=== PATIENT | female | born 1985 | race Caucasian/White ===

== ENCOUNTER → 2016-04-18 | Outpatient (CLI) | payer OTHER ==
[~2016-04-18] MED LIST: ACET-1256 PO; ATV/1 PO; IBUP-1050 PO; LORA0.5T12 PO; OMEP20CA9 PO; PANT1TAB48 PO; RANI300T2 PO; SUCR1TAB29 PO; VENL150C56 PO; VENL1CAP92 PO
[2016-04-18 12:49] LABS: BASO % 0.5 %; BASO ABS # 0.03 K/uL (0-0.2); COMPLETE YES; EOS % 4.6 %; HEMATOCRIT 40.1 % (37-47); IG% 0.2 %; LYMPH % 24.1 %; LYMPH ABS # 1.46 K/uL (1.2-3.4); MEAN CELL VOLUME 90.3 fL (80-100); MEAN CORPUSCULAR HEMOGLOBIN 30.6 pg (25-34); MEAN CORPUSCULAR HGB CONC 33.9 g/dl (32-36); MEAN PLATELET VOLUME 10.5 fL (7.4-10.4); MONO % 9.6 %; PLATELET COUNT 232 K/uL (130-400); RED BLOOD COUNT 4.44 M/uL (4.2-5.4); WHITE BLOOD COUNT 6.07 K/uL (4.8-10.8)
[2016-04-18 13:16] LABS: ESTIMATED AVERAGE GLUCOSE 97 mg/dl; HA1C FLAG Normal (Normal)
[2016-04-18 13:25] LABS: ALT/SGPT 37 U/L (12-78); AST/SGOT 15 U/L (15-37); BLOOD UREA NITROGEN 9 mg/dl (7-18); CARBON DIOXIDE 27 mmol/L (21-32); CHLORIDE 108 mmol/L (98-107); CREATININE 0.79 mg/dl (0.60-1.20); GLUCOSE 101 mg/dl (70-99); POTASSIUM 3.9 mmol/L (3.5-5.1); SODIUM 141 mmol/L (136-145)
[2016-04-18 13:36] LABS: ALB/GLOB RATIO 1.1 (0.9-2); ALKALINE PHOSPHATASE 66 U/L (45-117); CHOLESTEROL 150 mg/dl (0-200); CHOLESTEROL/HDL RATIO 3.6; HDL CHOLESTEROL 42 mg/dl; LDL CHOLESTEROL CALCULATED 84 mg/dl; TRIGLYCERIDES 120 mg/dl (0-150); VERY LOW DENSITY LIPOPROT CALC 24 mg/dl
[2016-04-19 06:49] LABS: URCREATININE 134.6 MG/DL (>/= 20)
== END | disposition home or self-care (01) ==
LOC: C.LABPBG 07:59
PROVIDERS: ATTEND Nurse Practitioner Adult Health
DX: Z00.00 Encounter for general adult medical examination without abnormal findings (principal); F41.9 Anxiety disorder, unspecified; E66.9 Obesity, unspecified

== ENCOUNTER → 2016-07-29 | Outpatient (CLI) | payer OTHER ==
[2016-07-29 17:44] LABS: LYME DISEASE AB IGG NEG (NEG); LYME DISEASE AB IGM NEG (NEG)
== END | disposition home or self-care (01) ==
LOC: C.LABPBG 14:08
PROVIDERS: ATTEND Nurse Practitioner Adult Health
DX: R07.89 Other chest pain (principal)

== ENCOUNTER → 2016-08-05 | Outpatient (CLI) | payer OTHER ==
--- NOTE | 2016-08-05 12:10 | MAMMOGRAPHY REPORT ---
UNILATERAL LEFT DIGITAL DIAGNOSTIC MAMMOGRAM TOMOSYNTHESIS WITH CAD: 08/05/2016 CLINICAL HISTORY: The patient has a history of cervical cancer status post hysterectomy. She reports intermittent diffuse left chest/breast pain for as long as she can remember including her teenage ye ars. She denies any palpable lumps or nipple discharge or other complaints. TECHNIQUE: Breast tomosynthesis in addition to standard 2D mammography was performed. Current study was also evaluated with a Computer Aided Detection (CAD) system. Left CC and MLO 2-D and tomosynthes is images were obtained. COMPARISON: No prior exams were available for comparison. BREAST COMPOSITION: There are scattered areas of fibroglandular density in the left breast. FINDINGS: There are no suspicious masses, calcifications, or areas of architectural distortion noted in the left breast mammographically. As the pain is diffuse and nonfocal, ultrasound was not perfor med. IMPRESSION: ACR BI-RADS CATEGORY 1: NEGATIVE No suspicious mammographic abnormality to explain intermittent diffuse left breast pain. There is no mammographic evidence of malignancy. Recommend clinical follow-up. The patient has been verbally notified of the results. Approximately 10% of breast cancers are not detected with mammography. A negative mammographic report should not delay biopsy if a clinically suggestive mass is present. Archana Greene M.D. ah/:08/05/2016 09:46:36 Supervising Broker: Vee CAZARES)(Antonio), [facility] letter sent: Normal 1/2 BI-RADS Code: ACR BI-RADS Category 1: Negative
== END | disposition home or self-care (01) ==
LOC: C.MAMM 09:14
PROVIDERS: ATTEND Nurse Practitioner Adult Health
DX: N64.4 Mastodynia (principal); Z85.41 Personal history of malignant neoplasm of cervix uteri

== ENCOUNTER → 2016-09-29 | Outpatient (CLI) | payer OTHER | END | disposition home or self-care (01) | LOC: C.LABSPEC 18:15 | PROVIDERS: ATTEND Family Medicine | DX: R10.13 Epigastric pain (principal) ==

== ENCOUNTER → 2016-09-29 | Outpatient (CLI) | payer OTHER ==
[2016-09-29 18:39] LABS: BASO % 0.4 %; BASO ABS # 0.03 K/uL (0-0.2); COMPLETE YES; EOS % 2.9 %; HEMATOCRIT 40.8 % (37-47); IG% 0.1 %; LYMPH ABS # 2.41 K/uL (1.2-3.4); MEAN CELL VOLUME 91.5 fL (80-100); MEAN CORPUSCULAR HEMOGLOBIN 32.1 pg (25-34); MEAN PLATELET VOLUME 10.3 fL (7.4-10.4); NEUT % 62.6 %; PLATELET COUNT 264 K/uL (130-400); RED BLOOD COUNT 4.46 M/uL (4.2-5.4); WHITE BLOOD COUNT 8.03 K/uL (4.8-10.8)
[2016-09-29 18:49] LABS: ALT/SGPT 44 U/L (12-78); AST/SGOT 16 U/L (15-37); BLOOD UREA NITROGEN 5 mg/dl (7-18); BUN/CREATININE RATIO 6.4 (10-20); CALCIUM 9.2 mg/dl (8.5-10.1); CARBON DIOXIDE 28 mmol/L (21-32); CHLORIDE 106 mmol/L (98-107); CREATININE 0.81 mg/dl (0.60-1.20); GLUCOSE 90 mg/dl (70-99); POTASSIUM 3.6 mmol/L (3.5-5.1); SODIUM 139 mmol/L (136-145)
[2016-09-29 18:52] LABS: ALB/GLOB RATIO 1.2 (0.9-2); ALKALINE PHOSPHATASE 71 U/L (45-117)
[2016-10-04 02:15] LABS: GLIADIN DEAMIDATED IgA AB 3 UNITS (<20); GLIADIN DEAMIDATED IgG AB 3 UNITS (<20); RETICULIN IgA AB Negative (Negative)
== END | disposition home or self-care (01) ==
LOC: C.LABPBG 15:06
PROVIDERS: ATTEND Family Medicine
DX: R10.13 Epigastric pain (principal)

== ENCOUNTER → 2016-10-05 | Outpatient (CLI) | payer OTHER | END | disposition home or self-care (01) | LOC: C.LABPBG 15:38 | PROVIDERS: ATTEND Registered Nurse | DX: R11.2 Nausea with vomiting, unspecified (principal) ==

== ENCOUNTER → 2016-10-06 | Outpatient (CLI) | payer OTHER ==
--- NOTE | 2016-10-06 10:15 | DIAGNOSTIC IMAGING REPORT ---
ABDOMINAL ULTRASOUND, RIGHT UPPER QUADRANT HISTORY: Epigastric abdominal pain. Acid reflux disease. COMPARISON: None. FINDINGS: Hepatic echogenicity is slightly increased. No hepatic lesions are identified. There is no biliary ductal dilatation. The common bile duct measures 4 mm in caliber. The gallbladder is normal. There are no gallstones. The pancreatic body is normal. The head and tail are slightly obscured by overlying bowel gas. There is no right hydronephrosis. IMPRESSION: 1. No gallstones or biliary ductal dilatation. 2. Possible fatty infiltration of the liver. Electronically signed by: Jona Segal M.D. 10/06/2016 10:13 AM Dictated Date/Time: 10/06/2016 10:12 AM
== END | disposition home or self-care (01) ==
LOC: C.ULTRBC 09:14
PROVIDERS: ATTEND Registered Nurse
DX: K21.9 Gastro-esophageal reflux disease without esophagitis (principal); R11.2 Nausea with vomiting, unspecified; R10.13 Epigastric pain

== ENCOUNTER → 2016-10-19 | Day surgery (SDC) | payer OTHER ==
[2016-10-11 11:23] VITALS: BMI 32.0
[~2016-10-19] VITALS: Ht 172.7 cm; Wt 97.3 kg
[~2016-10-19] MED LIST changes: -ACET-1256 PO; -IBUP-1050 PO; +LIDOCAINE HCL 2% 2 ML VIAL (20MG/ML) ONE; -LORA0.5T12 PO; +MIDAZOLAM HCL 1 MG/ML 2ML VIAL ONE; +PROPOFOL IV EMULSION 10 MG/ML 20 ML VIAL IV ONE; +SODIUM CHLORIDE 0.9% 500ML 500 ML IV ONE; -VENL1CAP92 PO
[2016-10-19 08:36] VITALS: Ht 172.7 cm; Wt 97.3 kg
[2016-10-19 08:43] VITALS: TEMP 37
--- NOTE | 2016-10-19 08:59 | Endo History and Physical ---
History & Physical Date of Service: Oct 19, 2016. Chief Complaint: VOMITING EPIGASTRIC PAIN GERD Referring Physician: DR MONTIEL History of Present Illness 30 yo CF who presents for EGD secondary to epigastric pain and GERD. Past Surgical History Hx Cardiac Surgery: No Hx Internal Defibrillator: No Hx Pacemaker: No Hx Abdominal Surgery: Yes (CONIZATION) Hx of Implantable Prosthesis: No Hx Post-Op Nausea and Vomiting: No Hx Cancer Surgery: Yes (BERNARDINO) Hx Thoracic Surgery: No Hx Orthopedic: No Hx Urinary Tract Surgery: No Family History Polyp, IBD Social History Smoking Status: Current Every Day Smoker Hx Substance Use: No Hx Alcohol Use: Yes (RARELY) Allergies Coded Allergies: Penicillins (Verified Allergy, Severe, "SWELLING" throat swells hives, ) Amoxicillin (Verified Allergy, Unknown, ANAPHYLAXIS, 10/19/16) Current Medications Reported Home Medications Medications Dose Route/Sig Max Daily Dose Days Date Category Ativan (Lorazepam) 1 Mg Tab 0.5 Mg PO BID PRN 10/11/16 Reported Prilosec (Omeprazole) 20 Mg Cap 20 Mg PO BID 10/11/16 Reported Effexor Extended Rel (Venlafaxine Hcl) 150 Mg Cap 150 Mg PO QAM 10/11/16 Reported Carafate (Sucralfate) 1 Gm Tab 1 Tab PO QID PRN 30 10/11/16 Reported Zantac (Ranitidine HCl) 300 Mg Tab 300 Mg PO HS 10/11/16 Reported Protonix (Pantoprazole) 40 Mg Tab 40 Mg PO QAM 10/11/16 Reported Vital Signs Weight (Kilograms): 97.27 Height (Feet): 5 Height (Inches): 8 Date Time Temp Pulse Resp B/P (MAP) Pulse Ox O2 Delivery O2 Flow Rate FiO2 10/19/16 08:43 37 94 18 125/80 (95) 98 Room Air Physical Exam General Appearance: WD/WN, no apparent distress Respiratory/Chest: Auscultation: breath sounds normal Cardiovascular: Heart Auscultation: RRR Abdomen: Bowel Sounds: normal Inspection & Palpation: soft, non-distended, no tenderness, guarding & rebound Assessment and Plan Assessment: 30 yo CF who presents for EGD secondary to epigastric pain and GERD. Plan: Proceed with EGD.
--- NOTE | 2016-10-19 09:23 | GI REPORT ---
Procedure Date: 10/19/2016 9:09 AM Procedure: Upper GI endoscopy Indications: Epigastric abdominal pain, Gastro-esophageal reflux disease Medicines: Monitored Anesthesia Care Complications: No immediate complications. Estimated Blood Loss: Estimated blood loss: none. Procedure: Pre-Anesthesia Assessment: - Prior to the procedure, a History and Physical was performed, and patient medications and allergies were reviewed. The patient's tolerance of previous anesthesia was also reviewed. The risks and benefits of the procedure and the sedation options and risks were discussed with the patient. All questions were answered, and informed consent was obtained. Prior Anticoagulants: The patient has taken no previous anticoagulant or antiplatelet agents. ASA Grade Assessment: II - A patient with mild systemic disease. After reviewing the risks and benefits, the patient was deemed in satisfactory condition to undergo the procedure. After obtaining informed consent, the endoscope was passed under direct vision. Throughout the procedure, the patient's blood pressure, pulse, and oxygen saturations were monitored continuously. The scope was introduced through the mouth, and advanced to the second part of duodenum. The upper GI endoscopy was accomplished without difficulty. The patient tolerated the procedure well. Findings: The esophagus was normal. The entire examined stomach was normal. Biopsies were taken with a cold forceps for Helicobacter pylori testing. The examined duodenum was normal. Biopsies for histology were taken with a cold forceps for evaluation of celiac disease. Impression: - Normal esophagus. - Normal stomach. Biopsied. - Normal examined duodenum. Biopsied. Recommendation: - Resume previous diet. - Continue present medications. - Await pathology results. - Return to GI office as previously scheduled. Roque Hansen DO 10/19/2016 9:23:42 AM This report has been signed electronically. Note Initiated On: 10/19/2016 9:09 AM I attest to the content of the Intraoperative Record and orders documented therein, exceptions below
--- NOTE | 2016-10-19 09:55 | Discharge Instructions ---
Endoscopy Patient Instructions Date / Procedure(s) Performed Oct 19, 2016. EGD Allergy Information Coded Allergies: Penicillins (Verified Allergy, Severe, "SWELLING" throat swells hives, ) Amoxicillin (Verified Allergy, Unknown, ANAPHYLAXIS, 10/19/16) Discharge Date / Findings Oct 19, 2016. Gastric antrum biopsies Duodenal biopsies Medication Instructions OK to resume all medications today as prescribed Reported Home Medications Medications Dose Route/Sig Max Daily Dose Days Date Category Ativan (Lorazepam) 1 Mg Tab 0.5 Mg PO BID PRN 10/11/16 Reported Prilosec (Omeprazole) 20 Mg Cap 20 Mg PO BID 10/11/16 Reported Effexor Extended Rel (Venlafaxine Hcl) 150 Mg Cap 150 Mg PO QAM 10/11/16 Reported Carafate (Sucralfate) 1 Gm Tab 1 Tab PO QID PRN 30 10/11/16 Reported Zantac (Ranitidine HCl) 300 Mg Tab 300 Mg PO HS 10/11/16 Reported Protonix (Pantoprazole) 40 Mg Tab 40 Mg PO QAM 10/11/16 Reported Provider Instructions Activity Restrictions - No exercising or heavy lifting for 24 hours. - Do not drink alcohol the day of the procedure. - Do not drive a car or operate machinery until the day after the procedure. - Do not make any important decisions or sign important papers in 24 hours after the procedure. Following Day: - Return to full activity which may include returning to work/school. Diet Start your diet with liquids and light foods (jello, soup, juice, toast). Then eat your usual diet if not nauseated. Treatment For Common After Affects For mild abdominal pain, bloating, or excessive gas: - Rest - Eat lightly - Lie on right side Follow-Up Information Follow-up with DR MONTIEL as scheduled Anesthesia Information What You Should Know You have had a procedure that required some medicine to reduce anxiety and discomfort. This treatment is called moderate sedation. After receiving the treatment, you may be sleepy, but you will be able to breathe on your own. The effects of the treatment may last for several hours. Follow these instructions along with Activity/Diet recommendations noted above: * Do NOT do anything where dizziness or clumsiness would be dangerous. * Rest quietly at home today, then you can be up and about tomorrow. * Have a responsible person stay with you the rest of today. * You may have had an I.V. today. If so, you may take the dressing off later today. Recommendations Call your doctor if: * Trouble breathing * Continuous vomiting for more than 24 hours * Temperature above 101 degrees * Severe abdominal pain or bloating * Pain not relieved by pain medicine ordered * There is increased drainage or redness from any incision * A large amount of rectal bleeding greater than 2-3 tablespoons. (If you had a polyp/s removed or have hemorrhoids, a small amount of blood - from the rectum is to be expected.) * You have any unanswered questions or concerns. IN THE EVENT OF A SERIOUS EMERGENCY, GO TO THE NEAREST EMERGENCY ROOM Your discharge instructions were prepared by provider Roque Hansen. Patient Instructions Signature Page Rose Mary Kaur Patient (or Guardian) Signature/Date: I have read and understand the instructions given to me by my caregivers. Caregiver/RN/Doctor Signature/Date: The above-named patient and/or guardian has received patient instructions on this date. + Original Patient Signature Page (only) stays with chart. Please make copy for patient.
[2016-10-19 09:56] VITALS: BP 116/90; PULSE 79; O2SAT 100
--- NOTE | 2016-10-19 10:24 | Anesthesiology Progress Note ---
Anesthesia Post Op Note Date & Time Oct 19, 2016 at 10:23 Vital Signs Pain Intensity: 0 Vital Signs Past 12 Hours Date Time Temp Pulse Resp B/P (MAP) Pulse Ox O2 Delivery O2 Flow Rate FiO2 10/19/16 09:56 79 18 116/90 (99) 100 Room Air 10/19/16 09:41 79 18 110/79 (89) 99 Room Air 10/19/16 09:26 88 18 111/84 (93) 97 Room Air 10/19/16 08:43 37 94 18 125/80 (95) 98 Room Air Notes Mental Status: alert / awake / arousable, participated in evaluation Pt Amnestic to Procedure: Yes Nausea / Vomiting: adequately controlled Pain: adequately controlled Airway Patency, RR, SpO2: stable & adequate BP & HR: stable & adequate Hydration State: stable & adequate Anesthetic Complications: no major complications apparent
== END ==
LOC: C.GI 08:16
PROVIDERS: ATTEND Internal Medicine
DX: R10.13 Epigastric pain (principal); K29.50 Unspecified chronic gastritis without bleeding; K21.9 Gastro-esophageal reflux disease without esophagitis; E66.9 Obesity, unspecified; Z85.41 Personal history of malignant neoplasm of cervix uteri

== ENCOUNTER → 2017-03-16 | Outpatient (CLI) | payer OTHER ==
[~2017-03-16] MED LIST changes: -LIDOCAINE HCL 2% 2 ML VIAL (20MG/ML) ONE; -MIDAZOLAM HCL 1 MG/ML 2ML VIAL ONE; +PANT1TAB3 PO; -PANT1TAB48 PO; -PROPOFOL IV EMULSION 10 MG/ML 20 ML VIAL IV ONE; -SODIUM CHLORIDE 0.9% 500ML 500 ML IV ONE
== END | disposition home or self-care (01) ==
LOC: C.PAPS 10:00
PROVIDERS: ATTEND Obstetrics & Gynecology
DX: Z12.4 Encounter for screening for malignant neoplasm of cervix (principal)

== ENCOUNTER 2022-06-03 05:37 | Inpatient (IN) ==
--- NOTE | 2022-05-26 11:54 | Anesthesiology Consultation ---
Date of Service May 26, 2022 History Surgery Operation Date: 06/03/22 11:15 Proposed Procedures p Left Salpingo-oophorectomy - Bryankhushboo Kaur MD Height/Weight Height: 5 ft 8 in Weight: 99.79 kg Allergies Allergy/AdvReac Type Severity Reaction Status Date / Time Penicillins Allergy Severe "SWELLING" Verified 05/26/22 11:19 throat swells hives amoxicillin Allergy Unknown ANAPHYLAXIS Verified 05/26/22 11:19 Medications Home Medications Medication Instructions Recorded Confirmed Last Taken lorazepam 1 mg tablet 1 mg PO BID PRN Anxiety 01/05/18 05/26/22 03/22/17 venlafaxine 150 mg 150 mg PO QAM 01/05/18 05/26/22 01/11/18 capsule,extended release 24 hr venlafaxine 75 mg capsule,extended 75 mg PO QAM 01/05/18 05/26/22 01/11/18 release 24 hr cyclobenzaprine 5 mg tablet 5 mg PO TID PRN muscle spasm #30 03/17/22 05/26/22 Unknown tabs oxcarbazepine 300 mg tablet 300 mg PO BID 03/17/22 05/26/22 Unknown gabapentin 300 mg capsule 300 mg PO .COMPLEX #90 caps 05/11/22 05/26/22 Unknown diclofenac sodium 75 mg 75 mg PO BID PRN pain #60 tabs 05/20/22 05/26/22 Unknown tablet,delayed release ibuprofen 200 mg tablet 200 mg PO Q6H PRN Pain 05/26/22 05/26/22 Unknown Past Medical History Medical History Anxiety Cervical cancer 2016--sx Depression GERD (gastroesophageal reflux disease) Left ovarian cyst Lumbar paraspinal muscle spasm Lumbosacral radiculopathy Osteoarthritis Protruded lumbar disc Spinal stenosis Past Family History Family History Father Family history of reaction to anesthesia difficulty waking after surgeries Family hx colonic polyps Mother Family hx colonic polyps Grandmother (Paternal) Family hx colonic polyps Grandfather (Paternal) Family history of diabetes mellitus Past Surgical History Surgical History History of dilatation and curettage History of esophagogastroduodenoscopy (EGD) History of hysterectomy d/t cancer History of myringotomy bilt History of tonsillectomy and adenoidectomy History of tooth extraction wisdom teeth Hx of colposcopy with cervical biopsy malignant Social History Smoking Status: Current some day smoker tobacco type: cigarettes Smoking cigarettes per day: 1 ppd every 3-4 days Do You Dip or Chew Tobacco: No Hx Alcohol Use: No Hx Substance Use: No substance use type: does not use
--- NOTE | 2022-05-26 12:58 | PAT Medication Instructions ---
Medication Instructions Date of Service May 26, 2022 Home Medications Medication Instructions Recorded cyclobenzaprine 5 mg tablet 5 mg PO TID PRN muscle spasm #30 03/17/22 tabs gabapentin 300 mg capsule 300 mg PO .COMPLEX #90 caps 05/11/22 diclofenac sodium 75 mg 75 mg PO BID PRN pain #60 tabs 05/20/22 tablet,delayed release lorazepam 1 mg tablet 1 mg PO BID PRN venlafaxine 150 mg capsule,extended release 24 hr 150 mg PO QAM venlafaxine 75 mg capsule,extended release 24 hr 75 mg PO QAM cyclobenzaprine 5 mg tablet 5 mg PO TID PRN oxcarbazepine 300 mg tablet 300 mg PO BID gabapentin 300 mg capsule 300 mg PO .COMPLEX diclofenac sodium 75 mg tablet,delayed release 75 mg PO BID PRN ibuprofen 200 mg tablet 200 mg PO Q6H PRN Continue as directed gabapentin 300 mg capsule 300 mg PO .COMPLEX ASK your surgeon for instructions diclofenac sodium 75 mg tablet,delayed release 75 mg PO BID PRN ibuprofen 200 mg tablet 200 mg PO Q6H PRN DO NOT take the morning of surgery cyclobenzaprine 5 mg tablet 5 mg PO TID PRN Take morning of surgery With a small sip of water, OTHERWISE NOTHING TO EAT OR DRINK AFTER MIDNIGHT: lorazepam 1 mg tablet 1 mg PO BID PRN(if needed) venlafaxine 150 mg capsule,extended release 24 hr 150 mg PO QAM venlafaxine 75 mg capsule,extended release 24 hr 75 mg PO QAM oxcarbazepine 300 mg tablet 300 mg PO BID Take evening before surgery lorazepam 1 mg tablet 1 mg PO BID PRN(if needed) cyclobenzaprine 5 mg tablet 5 mg PO TID PRN(if needed) oxcarbazepine 300 mg tablet 300 mg PO BID Other Notes If you have any questions please call us at [phone] or [phone] or [phone] or [phone]
--- NOTE | 2022-05-27 11:03 | History and Physical Report ---
CHIEF COMPLAINT: Left-sided ovarian tumor. HISTORY OF PRESENT ILLNESS: The patient is a 36-year-old 1, para 1. Her general health is complicated by depression and anxiety. She is on Zoloft, she takes one 150 mg pill a day and one 75 mg pill a day. She had an abnormal Pap smear. 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 She then underwent a total abdominal hysterectomy with preservation of both ovaries in 2015 and clean margins and no problems. She recently had back pain. She had a CT scan that showed a left- sided ovarian tumor. We did an ultrasound evaluation of the tumor, first one was done on March 22, 2022, at which time the tumor measured 9.1 x 6.8 x 7.2 cm. We had her come back in May and redo the measurements and it had increased slightly to 10.9 x 7.9 x 8.0. Presently, being scheduled for removal of left tube and ovary, it is going to be sent for examination at the time of surgery, and if the exam looks suspicious for carcinoma, we will then also take out the right tube and ovary. The patient has been informed of the planned procedure. PAST MEDICAL HISTORY: She has a girl, 9 years old, in good health. ALLERGIES: SHE IS ALLERGIC TO PENICILLIN AND AMPICILLIN CAUSES SHORTNESS OF BREATH. PAST MEDICAL HISTORY: She is on medicines for anxiety and depression, Zoloft and another medicine, which she could not recall. PAST SURGICAL HISTORY: She has had a conization of the cervix. She has had a total abdominal hysterectomy. She had a tonsillectomy and adenoidectomy. She had tubes in her ears. She has wisdom teeth removed. SOCIAL HISTORY: She is an occasional smoker. She vapes and smokes about 1/4 pack a day. No history of excessive alcohol intake. 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 FAMILY HISTORY: Mom is 57, has problems with addictions to alcohol and drugs. Father is 59, has heart disease, is heavy drinker, and has cirrhosis of the liver. She has 7 brothers and sisters, 1 brother was hospitalized once for problems with the illegal drugs. REVIEW OF SYSTEMS: She has no symptoms of frequent or severe headaches. No symptoms of blurred vision or double vision or ear infections. PHYSICAL EXAMINATION: GENERAL: Well-developed, well-nourished 36-year-old white female, alert and oriented x3 and cooperative, in no acute distress, appeared her stated age. EYES: Conjunctivae are pink. Sclerae white, no evidence of jaundice. EARS: Had normal light reflex bilaterally. NOSE: Had normal mucosa. Septum is midline. There were no polyps. THROAT: No erythema or evidence of infection. Teeth are in good state of repair. HEAD: Normocephalic. Normal distribution of hair. NECK: Supple. Trachea midline. Thyroid is not enlarged. There is no adenopathy appreciated. Both carotids are of good intensity. CHEST: Clear to auscultation and percussion. No wheezes, rales, or rhonchi appreciated. HEART: Had regular rhythm. S1 and S2 are normal. BREASTS: Normal. ABDOMEN: Soft and nontender. There is a well-healed Pfannenstiel scar. MUSCULOSKELETAL: Revealed no calf tenderness. PELVIC: Bimanual exam revealed fullness in the left adnexa. IMPRESSION TO THIS CASE: Status post conization, status post total abdominal hysterectomy, status post tonsillectomy and adenoidectomy, status post ear surgery, status post removal of wisdom teeth, and left ovarian tumor. Job ID: [id number] [facility]
--- NOTE | 2022-05-27 11:41 | Anesthesiology Consultation ---
Date of Service May 27, 2022 Assessment & Plan (1) Encounter for pre-operative examination: - Check test AM DOS - COVID screening: Per assessment on 05/27: No known COVID-19 positive contacts or current COVID-19 related symptoms. Travel screen negative. At surgeon discretion if preop Covid testing being done. 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 Familial history of nonischemic cardiomyopathy, TTN positive.. Patient is referred today further evaluation genetic testing. Notes no prior history of distinct cardiac disease. Tends to slightly higher heart rates occasional sharp jabs in the chest dizziness lightheadedness syncope near syncope. Possible prior murmur no history of personal heart failure arrhythmia.. Cardiac Exam: - regular rate & rhythm, no murmur, gallop or rub - normal S-1, normal S-2.. Referred for cardiac screening after testing positive for TTN monoallelic mutation. Father with same positive test and manifestation of disease with dilated nonischemic cardiomyopathy indwelling defibrillator. Cardiac disease also present in uncle and grandmother with similar genetic testing.. Lab work today given mild elevation in heart rate.. Echocardiogram ordered as routine screening.. Discussed autosomal dominant genetics and incomplete penetrance.. Single daughter will be tested at age 18 (currently age 9).. Given disease manifestation in first-degree relative anticipate yearly EKG and echocardiogram further recommendations pending the results testing.. Return 1 year, studies to be reviewed interim" - Cardiology note (04/28/22): "I received the results of your recent echocardiogram.. Your echocardiogram is normal. Heart function is normal by all parameters. No changes are needed at this time." Chart Review Chart Review: Acceptable Risk for Surgery and Patient seen in Pre Admission Testing Teaching & Discussion Pre-Anesthesia Teaching/Discussion Notes: Instructed NPO after midnight before surgery,except medications with 15 cc of water. Medication instructions provided according to the PAT guidelines. History Surgery Operation Date: 06/03/22 11:15 Proposed Procedures p Left Salpingo-oophorectomy - Bryan Kaur MD Height/Weight Height: 5 ft 8 in Weight: 97.7 kg Allergies Allergy/AdvReac Type Severity Reaction Status Date / Time Penicillins Allergy Severe "SWELLING" Verified 05/26/22 11:19 throat swells hives amoxicillin Allergy Unknown ANAPHYLAXIS Verified 05/26/22 11:19 Medications Home Medications Medication Instructions Recorded Confirmed Last Taken lorazepam 1 mg tablet 1 mg PO BID PRN Anxiety 01/05/18 05/26/22 03/22/17 venlafaxine 150 mg 150 mg PO QAM 01/05/18 05/26/22 01/11/18 capsule,extended release 24 hr venlafaxine 75 mg capsule,extended 75 mg PO QAM 01/05/18 05/26/22 01/11/18 release 24 hr cyclobenzaprine 5 mg tablet 5 mg PO TID PRN muscle spasm #30 03/17/22 05/26/22 Unknown tabs oxcarbazepine 300 mg tablet 300 mg PO BID 03/17/22 05/26/22 Unknown gabapentin 300 mg capsule 300 mg PO .COMPLEX #90 caps 05/11/22 05/26/22 Unknown diclofenac sodium 75 mg 75 mg PO BID PRN pain #60 tabs 05/20/22 05/26/22 Unknown tablet,delayed release ibuprofen 200 mg tablet 200 mg PO Q6H PRN Pain 05/26/22 05/26/22 Unknown Past Medical History Medical History Anxiety Depression GERD (gastroesophageal reflux disease) Left ovarian cyst Lumbar paraspinal muscle spasm Lumbosacral radiculopathy 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 Following with [facility] cardio Osteoarthritis Primary adenocarcinoma of endocervix 2016 > surgery Protruded lumbar disc Spinal stenosis Exercise / Class Metabolic Activity II 4-5 Yardwork/Stairs/Walk up hill (one FS (no CP, no SOB)) Past Family History Family History Father Family history of reaction to anesthesia difficulty waking after surgeries Family hx colonic polyps Mother Family hx colonic polyps Grandmother (Paternal) Family hx colonic polyps Grandfather (Paternal) Family history of diabetes mellitus Past Surgical History Surgical History History of dilatation and curettage History of esophagogastroduodenoscopy (EGD) History of hysterectomy d/t cancer History of myringotomy R/L History of tonsillectomy and adenoidectomy History of tooth extraction wisdom teeth Hx of colposcopy with cervical biopsy malignant Past Anesthesia History No Hx of Anesthesia Complications Father- Slow to wake History of PONV No Hx of PONV and Hx of Motion Sickness (Situational) Social History Smoking Status: Never smoker tobacco type: cigarettes Smoking cigarettes per day: Approximately 10 cigs/day Do You Dip or Chew Tobacco: No Hx Alcohol Use: No Hx Substance Use: No substance use type: does not use Review of Systems Patient denies chest pain, shortness of breath, dyspnea on exertion, fever, chills, cough, wheezing, palpitations. Physical Exam Vital Signs VITALS BP 123/84 P 80 TEMP 99.1 SP02 100%RA RESP 16 PHYSICAL Full cervical extension range of motion. Full TMJ range of motion. TMD 4 finger breaths Mallampati Score 2 Dentition: intact, + possible crowns Lungs: clear throughout to auscultation Cardiac: regular rate and rhythm, no murmurs noted Spine: normal Extremities: no LE edema Lab Results Anesthesia Preop Results Results Anesthesia Widget: WBC 6.98 K/ul (4.8-10.8) 05/27/22 Hgb 14.4 g/dl (12.0-16.0) 05/27/22 Hct 41.6 % (37.0-47.0) 05/27/22 Plt 296 K/uL (130-400) 05/27/22 Na 138 mmol/L (136-145) 05/27/22 K 3.6 mmol/L (3.5-5.1) 05/27/22 Cl 102 mmol/L (98-107) 05/27/22 CO2 27 mmol/L (21-32) 05/27/22 BUN 9 mg/dl (6-23) 05/27/22 Creat 0.75 mg/dl (0.6-1.2) 05/27/22 Glucose Level 86 mg/dl (70-99(Fasting)) 05/27/22 PT 11.1 Seconds (9.0-12.0) 05/27/22 PTT 29.9 Seconds (21.0-31.0) 05/27/22 INR 1.0 (0.9-1.1) 05/27/22 Blood Type O Positive 05/27/22 Antibody Screen NEGATIVE 05/27/22 Testing Electrocardiogram Date: 03/08/22 Findings: + NSR @ (90) Echocardiogram Date: 04/25/22 LVEF 58%. No regional motion abnormality. Global longitudinal strain is - 20.3%. Normal LV systolic function is suggested if GLS is -14% to -30%. No significant valvular disease. COVID-19 Risk Screen Screening Information COVID-19 Screen Date: 05/27/22 Exposure 21 Days Family/Household +COVID Last 21 Days: No Exposure 10 Days Any COVID Exposure Last 10 Days: No Symptoms Last 10 Days Experienced COVID Sx Last 10 Days: No + COVID 0-90 Days COVID + in Last 0-90 Days: No
[2022-06-03] MEDS ORDERED: CLINDA 900 MG **Premixed Bag IV SCH (06:00)
[2022-06-03] MEDS ORDERED: LR 15ML/HR IV SCH (06:00)
--- NOTE | 2022-06-03 06:51 | History & Physical Bridge Note ---
Date of Service June 03, 2022 History & Physical Bridge Note I have examined the patient, reviewed the History & Physical and in the interval since the performance of the History & Physical I have noted the following changes of clinical significance: no changes noted
[2022-06-03] MEDS ORDERED: DEXAMETHASONE SOD INJ 4 MG/ML VIAL ONE (06:54)
[2022-06-03] MEDS ORDERED: PROPOFOL IV EMULSION 10 MG/ML 20 ML VIAL IV ONE (06:54)
[2022-06-03] MEDS ORDERED: ONDANSETRON INJ 2 MG/ML 2 ML VIAL ONE ×2 (06:54→09:19)
[2022-06-03] MEDS ORDERED: MIDAZOLAM HCL 1 MG/ML 2ML VIAL ONE (06:55)
[2022-06-03] MEDS ORDERED: fentaNYL citrate PF 100 MCG/2 ML VIAL ONE (06:55)
[2022-06-03] MEDS ORDERED: fentaNYL citrate PF 100 MCG/2 ML VIAL IV PRN (06:58)
[2022-06-03] MEDS ORDERED: ATROPINE SULFATE 0.1 MG/ML 10ML SYR IV PRN (06:58)
[2022-06-03] MEDS ORDERED: ePHEDrine sulfate 50 MG/ML AMP IV PRN (06:58)
[2022-06-03] MEDS ORDERED: ONDANSETRON INJ 2 MG/ML 2 ML VIAL IV PRN ×2 (06:58→11:02)
[2022-06-03] MEDS ORDERED: METOCLOPRAMIDE HCL INJ 5 MG/ML 2 ML VIAL IV PRN (06:58)
[2022-06-03] MEDS ORDERED: HYDROmorphone INJ 1 MG/ML SYRINGE IV PRN (06:58)
[2022-06-03] MEDS ORDERED: KETAMINE 50 MG/5 ML SYRINGE ONE (06:59)
[2022-06-03] MEDS ORDERED: ACETAMINOPHEN 1000 MG/100 ML IV IV ONE (07:01)
[2022-06-03] MEDS ORDERED: HEPARIN (PORCINE) 1000 UNIT/ML 10 ML (CATH LAB USE ONLY) ONE (07:19)
[2022-06-03] MEDS ORDERED: LIDOCAINE 2% MPF LOCAL 5 ML VIAL ONE (07:55)
[2022-06-03] MEDS ORDERED: ROCURONIUM BROMIDE 10 MG/ML 5 ML VIAL IV ONE ×3 (07:55→08:07)
[2022-06-03] MEDS ORDERED: HYDROmorphone INJ 2 MG/ML SYR/VIAL ONE (08:46)
[2022-06-03] MEDS ORDERED: SUGAMMADEX SODIUM 200 MG/2 ML VIAL IV ONE (09:13)
--- NOTE | 2022-06-03 10:16 | Anesthesiology Progress Note ---
Date of Service June 03, 2022 Anesthesia Post Procedure Vital Signs Vital Signs: Temp Pulse Pulse Resp BP Pulse Ox O2 Del Method 06/03/22 10:00 100 H 17 115/91 94 Room Air 06/03/22 09:50 80 16 125/78 95 Oxymask 06/03/22 09:40 36.3 C L 94 H 15 99/67 L 98 Oxymask 06/03/22 05:59 36.9 C 86 20 126/80 98 Room Air O2 Flow Rate 06/03/22 10:00 06/03/22 09:50 10 06/03/22 09:40 10 06/03/22 05:59 Transfer of Care Handoff Completed per policy Notes Mental Status: alert / awake / arousable and participated in evaluation Nausea / Vomiting: adequately controlled Pain: adequately controlled Airway Patency, RR, SpO2: stable & adequate BP & HR: stable & adequate Hydration State: stable & adequate Anesthetic Complications: no major complications apparent and Pt Satisfied with anesthetic care
[2022-06-03] MEDS ORDERED: bisacodyL 10 MG SUPP PR PRN (11:02)
[2022-06-03] MEDS ORDERED: SENNA 8.6 MG TAB PO PRN (11:02)
[2022-06-03] MEDS ORDERED: MEPERIDINE HCL 50 MG/ML CARP IV PRN (11:02)
[2022-06-03] MEDS ORDERED: MAGNESIUM HYDROXIDE SUSP 30 ML UDC PO PRN (11:02)
[2022-06-03] MEDS ORDERED: PROMETHAZINE HCL 25 MG in SODIUM CHLORIDE 0.9% 50 ML IV PRN (11:02)
[2022-06-03] MEDS ORDERED: KETOROLAC 30 MG/ML VIAL IV PRN (11:02)
[2022-06-03] MEDS: D5W AND LACTATED RINGERS 1,000 ML IV SCH ×2 (11:38→23:23)
--- NOTE | 2022-06-03 12:24 | Operative Report (OR) ---
This is an operative notation of a left salpingo-oophorectomy and lysis of adhesions. INDICATIONS FOR SURGERY: Left-sided ovarian tumor. PREOPERATIVE DIAGNOSIS: Benign left-sided ovarian tumor. POSTOPERATIVE DIAGNOSES: Benign left-sided ovarian tumor and dense pelvic adhesions. SURGEON: Bryan Kaur M.D. SIGNAL ENGINEER: Twan Sanchez M.D. ESTIMATED BLOOD LOSS: 100 mL. ANESTHESIA: General. OPERATIVE FINDING AND PROCEDURE: The patient was brought to the OR table and correctly identified by armband and conversation. General anesthesia was administered. The abdomen was painted with an alc ohol-based sterilizing solution and draped in the usual sterile fashion. A Pfannenstiel incision was made through previous scar after time-out was taken. The scar was carried down to the anterior fasc ia by sharp dissection. Hemostasis was secured by electrocauterization. Fascia was incised transver sely the underlying muscle by blunt and sharp dissection. Recti muscles were in the midline exposing the peritoneum, which was carefully raised and entered to the lot of adhesions of the omentum to the anterior abdominal wall and these had to be taken down. Also, there were probl ems with the sigmoid colon, which was adherent to the anterior abdominal wall and also covered the le ft ovarian tumor. We carefully and systematically took down these adhesions. We entered the retrope ritoneal space. We identified the ureter. We used a rubber tape to tag it and we then systematicall y took down the adhesions on the tube and ovary. We identified the infundibulopelvic ligament and we ligated it with a silk tie and we had about 90% of the ovary freed up and then spontaneously rupture d. We suctioned the fluid out. It was a nice straw-colored fluid and looked benign. We sent it for pathology and then proceeded to take the rest of the cyst out. Eventually, we removed the cyst in t otal. We used silk ties for cautery. We then inspected the right ovary, which was also adherent to the colon and we dissected that free and put some Seprafilm on it. We sent the ovary down for pathol ogy along with peritoneal washings. Pathology felt it looked like a benign ovarian cyst. We then pr oceeded to do an anatomical approximation of the anterior abdominal wall. Peritoneum was closed with continuous interlocking suture of chromic. The recti muscles were approximated with [id number] suture chromic. Fascia was closed with continuous interlocking suture of Vicryl tied to midline. S ubcutaneous was approximated with a running plain and skin edges were approximated with staple clips. Job ID: [id number]
[2022-06-03] MEDS: oxyCODONE/ACETAMINOPHEN 5mg/325mg TAB PO PRN ×3 (14:17→23:38)
[2022-06-03] MEDS: IBUPROFEN 600 MG TAB PO PRN ×3 (14:18→23:38)
[2022-06-04 07:57] LABS: Hematocrit (blood only) 36.9 % (37.0-47.0); Hemoglobin 12.7 g/dl (12.0-16.0)
--- NOTE | 2022-06-04 10:48 | Obstetrical Progress Note ---
Date of Service June 04, 2022 Assessment & Plan Admission and Anticipated Discharge Date Admission Date: June 03, 2022 Subjective abdomen soft and non tender bowel sounds present high piched bandage removed incision is clean and dry no calf tenderness ambulating well hgb 12.7 Results & Data Vital Signs (Past 12 Hours) Vital Signs Temp Pulse Resp BP Pulse Ox O2 Del Method 06/04/22 08:00 36.8 C 75 16 106/81 98 Room Air 06/04/22 04:30 36.9 C 87 18 117/74 98 Room Air 06/03/22 23:40 Room Air 06/03/22 23:40 37 C 80 18 129/95 98 Room Air
--- NOTE | 2022-06-04 11:14 | Discharge Summary (DS) ---
DATE OF DISCHARGE: 06/04/2022. HOSPITAL COURSE: The patient was admitted with a left-sided ovarian tumor. It had been diagnosed by transvaginal ultrasound, followed for several months in the office and was increasing in size, altho ugh the appearance of the tumor looked to be unilocular and benign. She previously had a hysterectom y for adenocarcinoma of the endocervix with extensive involvement, but clean margins. The day she wa s brought to the hospital, she was brought to the OR. She was given prophylactic antibiotics. We di d a left salpingo-oophorectomy, which was difficult due to the fact that the ovarian cyst and ovary w as tucked behind the sigmoid colon. We had to carefully dissect it out. We had the pathologist looke d at it after it was removed, it appeared to be benign. We then freed up a bunch of adhesions, adhes ions to the anterior abdominal wall and also some adhesions to the right ovary, which was well positi oned and out of the pelvic cavity and we left that in situ. Following this, first postoperative day, the patient was ambulatory. Her preoperative hemoglobin was 14.4, postoperative hemoglobin was 12.7 . She was ambulating well, tolerating diet and requested to be discharged. She was told to come judd vaz in the office in a week for removal of janeen. Job ID: [id number]
[2022-06-04] MEDS: oxyCODONE/ACETAMINOPHEN 5mg/325mg TAB PO PRN ×2 (12:40→19:55)
[2022-06-04] MEDS: IBUPROFEN 600 MG TAB PO PRN ×2 (12:41→19:55)
[2022-06-05] MEDS: IBUPROFEN 600 MG TAB PO PRN ×2 (04:50→10:13)
[2022-06-05 06:42] LABS: Hematocrit (blood only) 35.7 % (37.0-47.0)
--- NOTE | 2022-06-05 08:30 | Obstetrical Progress Note ---
Date of Service June 05, 2022 Assessment & Plan Admission and Anticipated Discharge Date Admission Date: June 03, 2022 Subjective abdomen soft and non tender incision is clean and dry no calf tenderness ambulating well discharge delayed due to post operative ileus hgb 12.0 Results & Data Vital Signs (Past 12 Hours) Vital Signs Temp Pulse Resp BP Pulse Ox O2 Del Method 06/05/22 04:45 36.9 C 81 16 124/86 98 Room Air
--- NOTE | 2022-06-06 08:32 | Coding Query ---
Your help is needed for correct coding of this account; please clarify if the patients Post-operative Ileus, documented on the 06/05 Progress Note. was: (x ) expected out of the surgery ( ) unexpected complication from the surgery ( )other please specify Thank you Vandana STONER
== END 2022-06-05 10:20 | disposition home or self-care (01) | DRG 742 ==
LOC: ASU 05:37 → 4E1 09:47